=== PATIENT | female | born 1970 | race American Indian/Alaskan Native ===

== ENCOUNTER 2017-07-21 10:39 | Emergency (ER) | payer MEDICAID ==
[2017-07-21] MEDS ORDERED: BENADRYL IM ONE (15:44)
--- NOTE | 2017-07-21 15:50 | Emergency Department Report ---
ED Rash HPI - HPI Chief Complaint: Skin Rash Stated Complaint: BREAK OUT Time Seen by Provider: 07/21/17 15:29 Duration: 2 weeks Location: Other (diffusely all over her body) Suspected Cause: Unknown, Other (patient recalls having this rashes for years they are on and off, no known trigger factors.) Rash Symptoms: Yes Itching, No Facial Swelling, No Tongue/Oral Swelling, No Breathing Difficulties, No Choking Sensation, No Wheezing/Dyspnea, No Peeling, No Blistering, No Fever, No Lightheaded, No Malaise, No Myalgias Severity: moderate ED Review of Systems ROS: Stated complaint: BREAK OUT Other details as noted in HPI Comment: All other systems reviewed and negative Constitutional: denies: diaphoresis, fever, malaise, weakness, other Eyes: denies: eye pain, eye discharge, vision change ENT: denies: ear pain, throat pain, dental pain, hearing loss, epistaxis Respiratory: denies: cough, orthopnea, shortness of breath, SOB with exertion Cardiovascular: denies: chest pain, palpitations, dyspnea on exertion, edema, syncope, paroxysmal nocturnal dyspnea Endocrine: no symptoms reported. denies: excessive sweating, intolerance to cold, intolerance to heat Genitourinary: denies: urgency, dysuria, frequency, hematuria Musculoskeletal: denies: back pain, joint swelling, arthralgia Skin: as per HPI, rash (rashes on both flexor and extensor surfaces, on all her limbs and trunk), pruritus. denies: lesions Neurological: denies: headache, weakness, numbness, paresthesias, confusion ED Past Medical Hx - Past Medical History Previous Medical History?: No - Surgical History Past Surgical History?: Yes Hx Appendectomy: Yes Additional Surgical History: , arm, eye - Social History Smoking Status: Never Smoker Substance Use Type: Alcohol - Medications Home Medications: Home Medications Medication Instructions Recorded Confirmed Last Taken Type Mometasone Furoate [[place]] 45 gm TP BID #1 tube 07/21/17 Unknown Rx Mupirocin [Bactroban 2%] 1 applic TP TID #1 tube 07/21/17 Unknown Rx hydrOXYzine HCL [Atarax] 25 mg PO Q6HR PRN #24 tablet 07/21/17 Unknown Rx Rash Exam - Exam General: Vital signs noted. No distress. Alert and acting appropriately. HEENT: No Periorbital Edema, No Conjuctival Injection, No Chemosis, No Perioral Edema, No Tongue Edema, No Uvular Edema Lungs: Yes Good Air Exchange, No Wheezes, No Ronchi, No Stridor, No Cough, No Labored Respirations, No Retractions, No Use of Accessory Muscles, No Other Abnormal Lung Sounds Heart: Yes Regular, No Murmur Skin: Yes Excoriations (all over her body), Yes Weeping (some appear to be weeping), Yes Tenderness, Yes Erythema, Yes Encrustations, No Urticarial Rash ED Course Vital Signs 07/21/17 10:52 Temperature 98.1 F Pulse Rate 87 Respiratory 16 Rate Blood Pressure 112/57 O2 Sat by Pulse 100 Oximetry Critical Care Time: No Critical care attestation.: If time is entered above; I have spent that time in minutes in the direct care of this critically ill patient, excluding procedure time. ED Disposition Clinical Impression: Dermatitis Disposition: DC- TO HOME OR SELFCARE Is pt being admited?: No Does the pt Need Aspirin: No Condition: Stable Instructions: Excoriation Disorder (GEN), Eczema (ED) Additional Instructions: Follow up wit your PCP and seek referral to a Data Warehousing Engineer Prescriptions: hydrOXYzine HCL [Atarax] 25 mg PO Q6HR PRN #24 tablet PRN Reason: Itching Mometasone Furoate [[place]] 45 gm TP BID #1 tube Mupirocin [Bactroban 2%] 1 applic TP TID #1 tube Referrals: NATE GALLEGO MD [Primary Care Provider] - 3-5 Days RADHA CANADA MD [Referring] - 3-5 Days (Call office for an appointment) Time of Disposition: 16:07
[2017-07-21 16:32] VITALS: BP 116/62
== END 2017-07-21 16:31 | disposition home or self-care (01) ==
LOC: ED 10:39
DX: L30.9 Dermatitis, unspecified (principal)
CPT/HCPCS: 96372; 99282; J1200; J2930